=== PATIENT | female | born 1955 | race Caucasian/White ===

== ENCOUNTER 2022-02-11 13:10 | Emergency (ER) | payer BC, OTHER ==
[2022-02-11 13:25] VITALS: BP 128/73; PULSE 80; TEMP 97.8; BMI 21.5
== END 2022-02-11 14:50 | disposition home or self-care (01) ==
LOC: FER 13:10
DX: S62.301A Unspecified fracture of second metacarpal bone, left hand, initial encounter for closed fracture (principal); S62.607A Fracture of unspecified phalanx of left little finger, initial encounter for closed fracture; W01.198A Fall on same level from slipping, tripping and stumbling with subsequent striking against other object, initial encounter
CPT/HCPCS: 73130-TC-LT-FY; 99283-25

== ENCOUNTER 2023-02-26 16:48 | Emergency (ER) | payer OTHER ==
[2023-02-26] MEDS ORDERED: LIDO 2%/EPI 1:200000 PRESRVFRE (20 ML SDVIAL) CAUD ONE (17:09)
[2023-02-26] MEDS ORDERED: LIDO 2%/EPI 1:200000 PRESRVFRE (20 ML SDVIAL) ONE (17:11)
[2023-02-26 17:12] VITALS: BP 127/70; PULSE 84; RESP 18; TEMP 97.8; BMI 21.5
== END 2023-02-26 18:25 | disposition home or self-care (01) ==
LOC: FER 16:48
PROC: 0HQ0XZZ Repair Scalp Skin, External Approach (ICD-10-PCS; principal; 2023-02-26)
DX: S01.01XA Laceration without foreign body of scalp, initial encounter (principal); W22.8XXA Striking against or struck by other objects, initial encounter; W17.89XA Other fall from one level to another, initial encounter; Y93.B9 Activity, other involving muscle strengthening exercises
CPT/HCPCS: 70450-TC; 99284-25

== ENCOUNTER 2023-04-26 10:21 | Emergency (ER) | payer OTHER ==
[2023-04-26] MEDS ORDERED: DIPHTH,PERTUSS(ACELL),TET 0.5 ML DISP.SYRIN IM ONE ×2 (10:40→10:52)
[2023-04-26] MEDS ORDERED: LIDOCAINE HCL 2% (50ML VIAL) INF ONE (10:40)
[2023-04-26 10:51] VITALS: BP 147/56; PULSE 87; RESP 20; TEMP 97.6; BMI 21.5
[2023-04-26] MEDS ORDERED: LIDOCAINE HCL 2% (20ML MULTI-DOSE VIAL) ONE (10:52)
== END 2023-04-26 14:18 | disposition home or self-care (01) ==
LOC: FER 10:21
PROC: 0HQ0XZZ Repair Scalp Skin, External Approach (ICD-10-PCS; principal; 2023-04-26)
PROC: 3E0234Z Introduction of Serum, Toxoid and Vaccine into Muscle, Percutaneous Approach (ICD-10-PCS; 2023-04-26)
DX: S01.01XA Laceration without foreign body of scalp, initial encounter (principal); W01.198A Fall on same level from slipping, tripping and stumbling with subsequent striking against other object, initial encounter
CPT/HCPCS: 70450-TC; 90715; 99284-25